=== PATIENT | female | born 1960 | race Caucasian/White ===

== ENCOUNTER 2017-09-18 09:28 | Emergency (ER) | payer MEDICAID ==
[~2017-09-18] VITALS: Ht 147.3 cm; Wt 51.3 kg
[~2017-09-18 09:28] MED LIST: ASPI81TA31 PO; KETO10DR3 EACHEYE; METF500T4 PO
[2017-09-18] MEDS ORDERED: LINA5TAB PO (09:43)
[2017-09-18] MEDS ORDERED: INSU100V10 SQ (09:43)
[2017-09-18] MEDS ORDERED: CHOL400T15 PO (09:43)
[2017-09-18] MEDS ORDERED: HYDROCODONE BIT/HOMATROPINE 5 ML UDC PO ONE (09:45)
[2017-09-18] MEDS ORDERED: BENZONATATE 100 MG CAPSULE PO ONE (09:45)
--- NOTE | 2017-09-18 09:46 | NUR ---
DR REILLY AT BEDSIDE FOR EVALUATION.
--- NOTE | 2017-09-18 09:57 | NUR ---
PT MEDICATED PER MD ORDER.
[2017-09-18] MEDS ORDERED: BENZONATATE 100 MG CAPSULE ONE (10:05)
[2017-09-18] MEDS ORDERED: HYDROCODONE BIT/HOMATROPINE 5 ML UDC ONE (10:06)
--- NOTE | 2017-09-18 10:10 | NUR ---
Patient discharged to home in stable conditon. Written and verbal after care instructions given. Patient verbalizes understanding of instructions.
[2017-09-18 10:11] VITALS: BP 149/92
== END 2017-09-18 10:12 | disposition home or self-care (01) ==
LOC: ER 09:28
DX: J20.8 Acute bronchitis due to other specified organisms (principal); B96.89 Other specified bacterial agents as the cause of diseases classified elsewhere; E11.9 Type 2 diabetes mellitus without complications; Z79.4 Long term (current) use of insulin; Z79.82 Long term (current) use of aspirin; Z88.0 Allergy status to penicillin
CPT/HCPCS: 99283; A4663

== ENCOUNTER 2018-01-20 10:57 | Emergency (ER) | payer MEDICAID ==
[~2018-01-20] VITALS: Ht 152.4 cm; Wt 49.9 kg
[~2018-01-20 10:57] MED LIST changes: +CHOL400T15 PO; +INSU100V10 SQ; -KETO10DR3 EACHEYE; +LINA5TAB PO; -METF500T4 PO; +METF500T6 PO
[2018-01-20] MEDS ORDERED: METOCLOPRAMIDE HCL 10 MG/2 ML VIAL ONE (11:38)
[2018-01-20] MEDS ORDERED: diphenhydrAMINE 50 MG/1 ML VIAL ONE (11:38)
--- NOTE | 2018-01-20 11:44 | NUR ---
ACCU CHECK AND MEDS DONE. PT POSITIONED FOR COMFORT.
[2018-01-20] MEDS ORDERED: diphenhydrAMINE 50 MG/1 ML VIAL IM ONE (11:45)
[2018-01-20] MEDS ORDERED: METOCLOPRAMIDE HCL 10 MG/2 ML VIAL IM ONE (11:45)
--- NOTE | 2018-01-20 13:00 | NUR ---
MSE COMPLETED, MEDS ADMINISTERED, PT D/C'D HOME, ACI/RX X2 GIVEN PT AMBULATED W/O DIFF/TOOK ALL BELONGINGS.
[2018-01-20 13:34] VITALS: BP 145/85
== END 2018-01-20 13:00 | disposition home or self-care (01) ==
LOC: ER 10:57
DX: B34.9 Viral infection, unspecified (principal); R51 Headache; H01.006 Unspecified blepharitis left eye, unspecified eyelid; H01.003 Unspecified blepharitis right eye, unspecified eyelid; E11.9 Type 2 diabetes mellitus without complications; I10 Essential (primary) hypertension; Z90.49 Acquired absence of other specified parts of digestive tract; Z88.0 Allergy status to penicillin; Z79.82 Long term (current) use of aspirin; Z79.84 Long term (current) use of oral hypoglycemic drugs; Z79.899 Other long term (current) drug therapy; Z79.4 Long term (current) use of insulin
CPT/HCPCS: A4663; J1200; J2765

== ENCOUNTER 2018-03-19 11:29 | Emergency (ER) | payer MEDICAID ==
[~2018-03-19] VITALS: Ht 149.9 cm; Wt 49.9 kg
[2018-03-19 12:29] LABS: *BILIRUBIN,URIN NEGATIVE (NEGATIVE); *BLOOD, URINE NEGATIVE (NEGATIVE); *CLARITY,URINE CLEAR (CLEAR); *COLOR,URINE YELLOW (YELLOW); *KETONES,URINE NEGATIVE (NEGATIVE); *PROTEIN,URINE NEGATIVE (NEGATIVE); *UROBILINOGEN,URINE 0.2 E.U./dl (NORMAL); LEUKOCYTE ESTERASE ,URINE NEGATIVE (NEGATIVE); NITRITE, URINE NEGATIVE (NEGATIVE); PH,URINE 5.5 (5.0-8.0)
[2018-03-19 12:36] LABS: UGLUCOSE 2+ (NEGATIVE)
[2018-03-19 12:37] LABS: BACTERIA,URINE NONE SEEN /HPF (NONE SEEN); RBC,URINE 0-3 /HPF (0-3); SQUAMOUS EPITHELIAL CELL,UR FEW /HPF (NONE SEEN)
[2018-03-19 13:21] VITALS: BP 114/60
--- NOTE | 2018-03-19 13:21 | NUR ---
Patient discharged to home in stable conditon. Written and verbal after care instructions given. Patient verbalizes understanding of instructions.
== END 2018-03-19 13:22 | disposition home or self-care (01) ==
LOC: ER 11:29
DX: J40 Bronchitis, not specified as acute or chronic (principal); J02.9 Acute pharyngitis, unspecified; I10 Essential (primary) hypertension; E11.9 Type 2 diabetes mellitus without complications; E78.00 Pure hypercholesterolemia, unspecified; Z90.49 Acquired absence of other specified parts of digestive tract; Z88.0 Allergy status to penicillin; Z79.4 Long term (current) use of insulin; Z79.82 Long term (current) use of aspirin; Z79.84 Long term (current) use of oral hypoglycemic drugs; Z79.899 Other long term (current) drug therapy
CPT/HCPCS: A4663

== ENCOUNTER 2018-12-23 08:26 | Emergency (ER) | payer MEDICAID ==
[~2018-12-23] VITALS: Ht 152.4 cm; Wt 53.1 kg
[~2018-12-23 08:26] MED LIST changes: +METF-440 PO; -METF500T6 PO
[2018-12-23] MEDS ORDERED: HYDROCODONE/APAP 5-325MG TABLET ONE (09:13)
[2018-12-23] MEDS ORDERED: HYDROCODONE/APAP 5-325MG TABLET PO ONE (09:15)
--- NOTE | 2018-12-23 09:30 | NUR ---
PATIENT C/O RIGHT SHOULDER PAIN. XRAYS DONE. . PAIN MEDICINE GIVEN. FRIEND TO DRIVE HER HOME. DC, RX (INCLUDING PRECAUTIONS) AND FOLLOW UP INSTRUCTIONS GIVEN AND EXPLAINED TO PATIENT WHO STATE SHE UNDERSTANDS ALL INSTRUCTIONS. SHOULDER IMMOBILIZER PLACED.
== END 2018-12-23 09:42 | disposition home or self-care (01) ==
LOC: ER 08:26
DX: M25.511 Pain in right shoulder (principal); I10 Essential (primary) hypertension; E78.00 Pure hypercholesterolemia, unspecified; E11.9 Type 2 diabetes mellitus without complications; Z88.0 Allergy status to penicillin; Z90.49 Acquired absence of other specified parts of digestive tract; Z79.4 Long term (current) use of insulin; Z79.82 Long term (current) use of aspirin; Z79.899 Other long term (current) drug therapy
CPT/HCPCS: 73030; A4663